=== PATIENT | female | born 1955 | race Caucasian/White ===

== ENCOUNTER 2018-11-10 10:10 | Day surgery (SDC) | payer MEDICAID ==
[~2018-11-10] VITALS: Ht 167.6 cm; Wt 117.5 kg
[2018-11-10] MEDS ORDERED: fentaNYL 0.05 MG/ML VIAL ONE (13:18)
[2018-11-10] MEDS ORDERED: LIDOCAINE 2% 100 MG/5 ML UJET TP ONE (13:18)
[2018-11-10] MEDS ORDERED: MIDAZOLAM 2 MG/2 ML VIAL ONE (13:23)
[2018-11-10] MEDS ORDERED: fentaNYL 0.05 MG/ML VIAL IVP ONE (14:25)
== END 2018-11-10 14:44 | disposition home or self-care (01) ==
LOC: MOR 10:10 → MMU 10:18 → MOR 14:44
PROVIDERS: ATTEND Internal Medicine Gastroenterology
DX: K52.89 Other specified noninfective gastroenteritis and colitis (principal); K63.3 Ulcer of intestine; M35.3 Polymyalgia rheumatica; I10 Essential (primary) hypertension; F41.9 Anxiety disorder, unspecified; Z98.890 Other specified postprocedural states
CPT/HCPCS: 45380; 88305; J3010; J2250